=== PATIENT | female | born 1970 | race Caucasian/White ===

== ENCOUNTER → 2017-06-06 | Outpatient (CLI) | payer OTHER ==
[2017-06-06 10:17] LABS: Basophils # (A) 0.1 k/uL (0-0.2); Basophils % (A) 1 %; Eosinophils # (A) 0.3 k/uL (0-0.7); Eosinophils % (A) 3 %; HCT 39.8 % (34.0-46.0); HGB 13.9 gm/dL (11.4-16.0); Lymphocytes # (A) 2.5 k/uL (1.0-4.8); Lymphocytes % (A) 24 %; MCH 34.3 pg (25.0-35.0); MCHC 34.9 g/dL (31.0-37.0); MCV 98.3 fL (80.0-100.0); Mean Platelet Volume 7.1; Monocytes # (A) 0.5 k/uL (0-1.0); Monocytes % (A) 4 %; Neutrophils # (A) 7.1 k/uL (1.3-7.7); Neutrophils % (A) 67 %; Platelet Count 341 k/uL (150-450); RBC 4.05 m/uL (3.80-5.40); RDW 13.2 % (11.5-15.5); WBC 10.6 k/uL (3.8-10.6)
[2017-06-06 10:23] LABS: INR 1.1 (<1.2); Partial Thromboplastin Time 22.6 sec (22.0-30.0); Prothrombin Time 10.3 sec (9.0-12.0)
[2017-06-06 10:26] LABS: Appearance,Urine Cloudy (Clear); Bacteria,Urine Occasional /hpf; Bilirubin,Urine Negative (Negative); Blood,Urine Moderate (Negative); Color,Urine Yellow; Glucose,Urine (UA) Negative (Negative); Ketones,Urine Negative (Negative); Leukocyte Esterase,Urine Large (Negative); Nitrite,Urine Positive (Negative); Protein,Urine Trace (Negative); RBC,Urine 143 /hpf (0-5); Specific Gravity,Urine 1.015 (1.001-1.035); Urobilinogen,Urine <2.0 mg/dL (<2.0); WBC,Urine >182 /hpf (0-5)
[2017-06-06 10:52] LABS: Anion Gap 13 mmol/L; Blood Urea Nitrogen 16 mg/dL (7-17); Calcium 9.1 mg/dL (8.4-10.2); Carbon Dioxide 27 mmol/L (22-30); Chloride 103 mmol/L (98-107); Glucose 92 mg/dL (74-99); Sodium 143 mmol/L (137-145)
--- NOTE | 2017-06-06 12:16 | XR ---
EXAMINATION TYPE: XR chest 2V DATE OF EXAM: 06/06/2017 COMPARISON: NONE HISTORY: Preop TECHNIQUE: Frontal and lateral views of the chest are obtained. FINDINGS: There is metallic clip present at the medial aspect of the right hemidiaphragm which may be dislodged from the fallopian tube placement. There is no focal air space opacity, pleural effusion, or pneumothorax seen. The cardiac silhouette size is within normal limits. The osseous structures are intact. IMPRESSION: No acute cardiopulmonary process. Foreign body may represent fallopian tubal ligation cl ip in the upper abdomen.
== END | disposition home or self-care (01) ==
LOC: LABPAT 09:25
PROVIDERS: ATTEND Orthopaedic Surgery Orthopaedic Surgery of the Spine
DX: Z01.818 Encounter for other preprocedural examination (principal); Z01.812 Encounter for preprocedural laboratory examination; M48.02 Spinal stenosis, cervical region; Z79.01 Long term (current) use of anticoagulants
CPT/HCPCS: 36415; 71046; 80048; 81001; 85025; 85610; 85730

== ENCOUNTER → 2017-09-10 | Outpatient (CLI) | payer OTHER ==
--- NOTE | 2017-09-10 23:40 | US ---
EXAMINATION TYPE: US transvaginal DATE OF EXAM: 09/10/2017 COMPARISON: NONE CLINICAL HISTORY: 47-year-old female N92.0 Menorrhagia. Irregular painful heavy cycles x couple month s, 1, 1, history of tubal ligation TECHNIQUE: Transvaginal exam only per ordering physician Date of LMP: 08/18/2017 FINDINGS: EXAM MEASUREMENTS: Uterus: 7.7 x 3.1 x 4.1 cm Endometrial Stripe: 0.3 cm Right Ovary: 3.4 x 2.2 x 1.7 cm Left Ovary: 2.6 x 1.8 x 2.1 cm 1. Uterus: anteverted, mildly heterogeneous, multiple nabothian cysts 2. Endometrium: wnl 3. Right Ovary: small 1.4cm cyst or dominant follicle 4. Left Ovary: wnl 5. Bilateral Adnexa: wnl 6. Posterior cul-de-sac: wnl IMPRESSION: A 1.4 cm dominant follicle or functional cyst in the right ovary. Multiple cervical nabothian cysts. Otherwise, no specific abnormality seen.
== END | disposition home or self-care (01) ==
LOC: RADUSWWP 16:57
PROVIDERS: ATTEND Family Medicine
DX: N88.8 Other specified noninflammatory disorders of cervix uteri (principal)
CPT/HCPCS: 76830

== ENCOUNTER → 2017-11-29 | Outpatient (CLI) | payer OTHER | END | disposition home or self-care (01) | LOC: LABWHC1 11:19 | PROVIDERS: ATTEND Internal Medicine Cardiovascular Disease | DX: I10 Essential (primary) hypertension (principal) | CPT/HCPCS: 36415; 83704 ==

== ENCOUNTER → 2018-05-02 | Outpatient (CLI) | payer OTHER ==
--- NOTE | 2018-05-02 14:03 | MM ---
Reason for exam: follow-up at short interval from prior study. Last mammogram was performed 7 months ago. History: Patient is nulliparous. Benign excisional biopsy of the left breast. Took hormonal contraceptives for 15 years. Physical Findings: Nurse did not find any significant physical abnormalities on exam. MG Diagnostic Mammo LT w CAD CC and MLO view(s) were taken of the left breast. Prior study comparison: October 11, 2017, bilateral MG screening mammo w CAD. July 20, 2016, mammogram, performed at [facility]. The breast tissue is heterogeneously dense. This may lower the sensitivity of mammography. Stable grouped and regional calcifications laterally for 6 months and likely from 2017 as well. Additional short interval follow up recommended. These results were verbally communicated with the patient and result sheet given to the patient on 05/02/18. ASSESSMENT: Probably benign, BI-RAD 3 RECOMMENDATION: Follow-up diagnostic mammogram of both breasts in 6 months.
== END ==
LOC: RADMAMWWP 12:59
PROVIDERS: ATTEND Family Medicine
DX: R92.8 Other abnormal and inconclusive findings on diagnostic imaging of breast (principal)
CPT/HCPCS: 77065

== ENCOUNTER → 2018-06-24 | Outpatient (CLI) | payer OTHER ==
--- NOTE | 2018-06-24 18:43 | XR ---
EXAMINATION TYPE: XR chest 2V DATE OF EXAM: 06/24/2018 COMPARISON: 06/06/2017 HISTORY: Preop TECHNIQUE: Frontal and lateral views of the chest are obtained. FINDINGS: Heart and mediastinum are normal. Lungs are clear. Diaphragm is normal. Bony thorax appear s normal. There is surgical clip apparently at the inferior right cardiac border. IMPRESSION: Normal chest. No change.
== END ==
LOC: LABPAT 16:00
PROVIDERS: ATTEND Orthopaedic Surgery Orthopaedic Surgery of the Spine
DX: Z01.818 Encounter for other preprocedural examination (principal); Z01.812 Encounter for preprocedural laboratory examination; G95.89 Other specified diseases of spinal cord
CPT/HCPCS: 71046; 80053; 85025; 85610; 85730; 86850; 86900; 86901

== ENCOUNTER 2018-07-03 12:12 | Day surgery (SDC) | payer OTHER ==
[~2018-07-03 12:12] MED LIST: BACITRACIN 50,000 UNIT, POLYMYXIN B 500,000 UNIT in SODIUM CHLORIDE 0.9% IRRIGATIO 1,00... IRRIGATION ONE; DEXAMETHASONE SOD PHOSPHATE 10 MG/ML 1 ML VIAL IV ONE; LIDOCAINE 1% 20 ML VIAL (10MG/ML) FOR IV START INTRADERMA PRN; MIDAZOLAM 2 MG/2 ML VIAL IV PRN; ceFAZolin IN SWFI 2 GM/20 ML SYRINGE IVP ONE
[2018-07-03] MEDS: LACTATED RINGERS 1,000 ML IV SCH ×3 (14:24→22:47)
[2018-07-03] MEDS ORDERED: ONDANSETRON 4 MG/2 ML VIAL IVP ONE (14:25)
[2018-07-03] MEDS ORDERED: LIDOCAINE 1% INJ 10MG/ML (20 ML MDV) ONE (15:34)
[2018-07-03] MEDS ORDERED: ePHEDrine SULFATE/0.9% NACL/PF 50 MG/5 ML SYRINGE IV ONE (15:34)
[2018-07-03] MEDS ORDERED: SUCCINYLCHOLINE CHLORIDE 100 MG/5 ML SYR IV ONE (15:34)
[2018-07-03] MEDS ORDERED: ROCURONIUM BROMIDE 10 MG/ML 10 ML VIAL IV ONE (15:34)
[2018-07-03] MEDS ORDERED: GLYCOPYRROLATE 0.2 MG/ML 2 ML VIAL ONE (15:34)
[2018-07-03] MEDS ORDERED: HYDROmorphone (PF) 1 MG/ML ONE (15:34)
[2018-07-03] MEDS ORDERED: NEOSTIGMINE 1 MG/ML 10 ML VIAL ONE (15:34)
[2018-07-03] MEDS ORDERED: PHENYLEPHRINE-0.9% NACL SYG 1 MG/10 ML SYRINGE ONE (15:34)
[2018-07-03] MEDS ORDERED: fentaNYL (PF) 50 MCG/ML 2 ML AMP ONE (15:34)
[2018-07-03] MEDS ORDERED: MIDAZOLAM 2 MG/2 ML VIAL ONE (15:34)
[2018-07-03] MEDS ORDERED: PROPOFOL 10 MG/ML 20 ML VIAL IV ONE (15:34)
[2018-07-03] MEDS ORDERED: GELATIN SPONGE,ABSORB (LARGE) 1 EACH SPONGE TOPICAL ONE (16:11)
[2018-07-03] MEDS ORDERED: THROMBIN (BOVINE) 5,000 UNIT VIAL TOPICAL ONE (16:11)
[2018-07-03] MEDS ORDERED: LIDOCAINE 0.5%-EPI 1:200,000 50 ML VIAL SQ ONE (16:11)
[2018-07-03] MEDS ORDERED: LACTATED RINGERS 1,000 ML IV ONE ×4 (16:32→18:23)
--- NOTE | 2018-07-03 16:44 | XR ---
Cervical spine single view. History needle placement. Comparison none. This single lateral view was obtained. There is a needle with the tip over the disc space at C5-6. IMPRESSION: Needle tip is at the C5-6 disc.
[2018-07-03] MEDS ORDERED: HYDROmorphone 1 MG/ML 1 ML SYRINGE IVP PRN (17:43)
[2018-07-03] MEDS ORDERED: ONDANSETRON 4 MG/2 ML VIAL IVP PRN (17:43)
[2018-07-03] MEDS ORDERED: HYDROcodone/APAP 5-325MG 1 EACH TAB PO PRN (17:43)
[2018-07-03] MEDS ORDERED: MAGNESIUM HYDROXIDE 2,400 MG/10 ML CUP PO PRN (17:43)
[2018-07-03] MEDS ORDERED: ACETAMINOPHEN TAB 325 MG TAB PO PRN (17:43)
[2018-07-03] MEDS ORDERED: HYDROmorphone 0.5 MG/0.5 ML SYRINGE IVP PRN (17:43)
--- NOTE | 2018-07-03 17:56 | P.OP ---
Date of Procedure: 07/03/18 Preoperative Diagnosis: Cervical myelopathy, cervical stenosis, disc herniation C4 5 C5 6 C6 7, upper extremity weakness, upper extremity radiculopathy Postoperative Diagnosis: Same Anesthesia: GETA Pathology: none sent Condition: stable Disposition: PACU Description of Procedure: BRIEF OPERATIVE NOTE Preoperative Diagnosis:Cervical myelopathy, cervical stenosis, disc herniation C4 5 C5 6 C6 7, upper extremity weakness, upper extremity radiculopathy Postoperative Diagnosis:Cervical myelopathy, cervical stenosis, disc herniation C4 5 C5 6 C6 7, upper extremity weakness, upper extremity radiculopathy Procedure: Anterior cervical decompression discectomy and fusion C4 5 C5 6 C6 7 Placement of interbody graft C4 5 C5 6 C6 7 Application of anterior cervical plate C4 5 6 7 Surgeon: Dr. Ramos [facility] Experience Strategy: Dion THOMAS who is present throughout the entire the case persistence during positioning, dissection, exposure, visualization, and all crucial elements of the case as well as closure. Anesthesia: General anesthesia per Dr. Walker Estimated blood loss: Approximately 50 mL Complications: None apparent Components implanted: K2M Cass anterior cervical plate system with 12 mm screws and vikos interbody allograft bone graft with 1 mL of DBX bone putty to supplemental the allograft bone graft Disposition: To recovery room in good stable condition. OPERATIVE INDICATIONS The patient has had long-standing issues in their neck and upper extremities. She is having worsening of her symptoms and some evidence of weakness and decreased extremity and her upper extremities. She is found have significant disc herniations at C4 5 C5 6 C6 7 with significant stenosis and evidence of early myelopathy. Her symptoms correlated well with her MRI and imaging findings. The patient has been through conservative treatment. She is having worsening of her symptoms despite aggressive conservative care. We discussed v arious treatment options including surgery, and the patient wishes to proceed with surgery We discussed the risk, patient's alternatives and benefits of surgery including but not limited to, risk of bleeding risk of infection, risk of need for further surgery, risk of decreased, loss of motion, muscle function, malunion nonunion, hardware failure, nerve damage, paralysis, heart attack, and . OPERATIVE SUMMARY After discussing all the risks, patient alternatives and benefits at length, the patient elected to proceed with surgical intervention, signed informed consent, and presented for their procedure. The patient was seen and examined in the preoperative holding area and the surgical site was marked. The patient was given antibiotics and brought to the operating room. The patient was positioned on the operating room table in a supine position being careful to pad any bony prominences and pressure points. The patient was sedated and intubated by anesthesia in standard fashion. Once the airway and C- spine were stabilized the patient's arms were padded and tucked at her side, with her shoulders gently taped. The head was placed in a donut pad with the neck in good neutral alignment and position. We were careful to maintain the patient's cervical spine and good neutral alignment and position throughout. The patient was prepped and draped in a normal standard fashion. An appropriate timeout and keystone protocol performed. We were able to proceed with the surgery. The local wound area was infiltrated with local anesthetic. An incision was made transversely approximately 2-1/2 cm over the appropriate levels at C5 6. Dissection was taken down subcutaneously to the level of the platysma which was split in line with its fibers. Dissection was taken with a c arotid approach, with the trachea and esophagus medial and the carotid sheath laterally. We dissected down to the anterior surface of the vertebral bodies. Intraoperative x-ray was taken which showed a marker at the appropriate level at C5 6 starting at C4 5 and then moving to C5 6 and then C6 7. With the appropriate level positively confirmed, we were able to proceed with discectomy at the appropriate levels. All of the operative levels were exposed appropriately. The patient had all their twitches back, and there was no evidence of recurrent laryngeal issue. The wound was copiously irrigated and suctioned dry as had been done periodically throughout the case. At the appropriate level/levels, I established an annulotomy with an 11 blade scalpel. A discectomy was performed with a combination of pituitary rongeurs, curettes, a high-speed bur, and Kerrison rongeurs. Note was made of obvious disc herniation with stenosis centrally and at the bilateral neural foramen. This was remedied with the discectomy and decompression. The posterior longitudinal ligament was taken down as were any posterior osteophytes. This gave good central and bilateral foraminal decompression. There is no evidence of any dural tear or leak. The endplates were prepared with a high-speed bur. With the endplates in good parallel position, I was able to size for the appropriate size interbody graft. The wound was irrigated and suctioned dry the graft was prepared and malleted into position. It had good alignment and position with the anterior surface flush with the anterior surface of the vertebral bodies. This was done similarly the appropriate levels first at C4 5 than at C5 6 and then at C6 7. With the grafts intact, I was able to measure and contour and appropriate sized plate. The plate was positioned at the midline over the appropriate levels from C4 to C7. Screw holes were established with a hand drill and drill guide. Screws were placed in good alignment and position with excellent bony purchase. They were seated under the locking device. The construct was checked and found to be stable. Intraoperative x-ray was taken which showed good alignment and position of the implants at the appropriate levels at C4 5 6 7. There was no evidence of any dural tear or leak. Good hemostasis was maintained. The wound was copiously irrigated and suctioned dry as had been done periodically throughout the case. The platysma was closed with absorbable suture. The subcutaneous tissue was closed. The subcuticular tissue was closed with absorbable suture. The wound was cleaned and dried and dressed appropriately. A soft cervical collar was placed appropriately. The patient was woken up by anesthesia, extubated, transferred back gently to their hospital bed and brought to the recovery room in good stable condition. The patient will be admitted to the hospital for appropriate postoperative care, medical management and monitoring. We will continue to follow them closely about the postoperative course.
[2018-07-03] MEDS: HYDROmorphone 1 MG/ML 1 ML SYRINGE IVP ONE ×2 (18:02→18:09)
[2018-07-03] MEDS: fentaNYL (PF) 50 MCG/ML 2 ML AMP IV PRN ×2 (18:22→18:29)
--- NOTE | 2018-07-03 18:41 | XR ---
Cervical spine EXAMINATION TYPE: XR cervical spine 1V DATE OF EXAM: 07/03/2018 COMPARISON: Today HISTORY: Surgery TECHNIQUE: Single view FINDINGS: A single lateral view shows a plate and screws apparently fusing the cervical spine anterio rly from C4 to C7. Vertebra have normal alignment. IMPRESSION: No complicating process seen.
[2018-07-03] MEDS ORDERED: HYDROmorphone 1 MG/ML 1 ML SYRINGE IVP ONE ×3 (19:00→19:51)
[2018-07-03 20:59] VITALS: BMI 33.5
[2018-07-03] MEDS: FAMOTIDINE 20 MG TAB PO SCH (21:13)
[2018-07-03] MEDS: SODIUM CHLORIDE 0.9% 1,000 ML IV SCH (21:14)
[2018-07-03] MEDS: HYDROcodone/APAP 10-325MG 1 EACH TAB PO PRN (22:55)
[2018-07-03] MEDS: ceFAZolin IN SWFI 2 GM/20 ML SYRINGE IVP SCH (23:02)
[2018-07-04] MEDS: BENZOCAINE/MENTHOL LOZENG 1 EACH LOZENGE MUCOUS MEM PRN ×2 (01:24→05:32)
[2018-07-04] MEDS: HYDROcodone/APAP 10-325MG 1 EACH TAB PO PRN (05:30)
[2018-07-04] MEDS ORDERED: LEVOTHYROXINE 88 MCG TAB PO SCH (06:30)
[2018-07-04] MEDS: SODIUM CHLORIDE 0.9% 1,000 ML IV SCH (08:09)
[2018-07-04] MEDS: ceFAZolin IN SWFI 2 GM/20 ML SYRINGE IVP SCH (08:51)
[2018-07-04] MEDS: FAMOTIDINE 20 MG TAB PO SCH (08:52)
[2018-07-04] MEDS ORDERED: LORATADINE 10 MG TAB PO SCH (09:00)
[2018-07-04] MEDS ORDERED: NITROFURANTOIN MONOHYD/M-CRYST 100 MG CAP PO SCH (09:00)
[2018-07-04] MEDS ORDERED: SENNOSIDES-DOCUSATE SODIUM 1 EACH TAB PO SCH ×2 (09:00)
[2018-07-04] MEDS ORDERED: CHOLECALCIFEROL 1,000 UNIT TAB PO SCH (09:00)
[2018-07-04] MEDS ORDERED: LOSARTAN 50 MG TAB PO SCH (09:00)
[2018-07-04 09:21] VITALS: BP 112/71; PULSE 93; RESP 16; TEMP 98.1
--- NOTE | 2018-07-04 09:34 | P.DS ---
Providers Date of admission: 07/03/18 Attending physician: Matty Ramos Primary care physician: Umesh Goldstein [place] [facility] Course: The patient presented on the day of admission as per their operative note. She had cervical stenosis with evidence of early myelopathy due to her stenosis at C4 5 C5 6 and C6 7 with disc herniations. She is having upper extremity radiculopathy as well. She feels that her symptoms at her upper extremities are somewhat improved with her surgery. She still having some numbness tingling she has been able to mobilize. Physical Exam The incision site is clean dry and intact. There is no erythema no drainage. There is no purulence no evidence of infection. Her neck is soft and supple. There is very small dry drainage on her dressing which we will leave intact. Abdomen soft and nontender. Chest has good excursion with deep inspiration and expiration. The patient has active and passive range of motion intact at the upper and lower extremities. There is no acute change in neurologic status. Hospital Course Postoperative day #1 status post anterior cervical decompression with discectomy and fusion C4 5 C5 6 C6 7 for her disc herniations with significant cervical stenosis and cervical myelopathy with radiculopathy. The patient has been making good progress postoperatively. They have completed the prophylactic antibiotics without any signs or symptoms of infection. The patient has been able to advance their diet, and is tolerating a soft diet adequately. The pain was initially controlled with IV medications and is now controlled appropriately with oral medications. The patient has been able to increase their mobilization. The dressing is clear and her neck is soft and supple. The patient has progressed appropriately. I think they are in good stable condition for discharge today. They will be sent home with appropriate prescriptions. I answered their questions to the best of my ability in a language that they can understand and they are agreeable with the plan. They will follow up as directed in approximately 2 weeks or sooner she is having problems. Patient Condition at Discharge: Good Plan - Discharge Summary Discharge Rx Participant: Yes New Discharge Prescriptions: No Action HYDROcodone/APAP 10-325MG [[place] 10-325] 1 tab PO TID PRN PRN Reason: Pain Multivitamin [Multivitamins Adult Gummies] 1 each PO DAILY Cetirizine HCl 10 mg PO DAILY Ranitidine HCl [Zantac] 150 mg PO BID Levothyroxine Sodium [Synthroid] 175 mcg PO QAM Cholecalciferol [Vitamin D3] 2,000 unit PO DAILY Losartan [Cozaar] 50 mg PO QAM Nitrofurantoin Macrocrystal [Macrodantin] 100 mg PO DAILY Discharge Medication List Cetirizine HCl 10 mg PO DAILY 06/01/17 [History] Cholecalciferol [Vitamin D3] 2,000 unit PO DAILY 06/01/17 [History] HYDROcodone/APAP 10-325MG [[place] 10-325] 1 tab PO TID PRN 06/01/17 [History] Levothyroxine Sodium [Synthroid] 175 mcg PO QAM 06/01/17 [History] Losartan [Cozaar] 50 mg PO QAM 06/01/17 [History] Multivitamin [Multivitamins Adult Gummies] 1 each PO DAILY 06/01/17 [History] Ranitidine HCl [Zantac] 150 mg PO BID 06/01/17 [History] Nitrofurantoin Macrocrystal [Macrodantin] 100 mg PO DAILY 06/26/18 [History] Follow up Appointment(s)/Referral(s): Matty Ramos DO [Doctor of Osteopathic Medicine] - 2 Weeks Activity/Diet/Wound Care/Special Instructions: Keep site clean. May shower with waterproof Tegaderm intact. Do not soak in a tub. After 72 hours postoperatively, patient May remove dressing and then may shower with area uncovered. Leave Steri-Strips intact and allow them to fray off on their own. May ambulate as tolerated. Avoid heavy or rigorous activity. No repetitive bending twisting or lifting. No overhead work. Discharge Disposition: HOME SELF-CARE
== END 2018-07-04 11:03 | disposition home or self-care (01) ==
LOC: OR 12:12 → 4SSUR 17:44 → OR 07-04 11:03
PROVIDERS: ATTEND Orthopaedic Surgery Orthopaedic Surgery of the Spine
DX: M50.021 Cervical disc disorder at C4-C5 level with myelopathy (principal); M48.02 Spinal stenosis, cervical region; M50.121 Cervical disc disorder at C4-C5 level with radiculopathy; M25.78 Osteophyte, vertebrae; M43.12 Spondylolisthesis, cervical region; R26.9 Unspecified abnormalities of gait and mobility; E78.5 Hyperlipidemia, unspecified; I10 Essential (primary) hypertension; E78.00 Pure hypercholesterolemia, unspecified; E89.0 Postprocedural hypothyroidism; F17.210 Nicotine dependence, cigarettes, uncomplicated; K21.9 Gastro-esophageal reflux disease without esophagitis; E66.9 Obesity, unspecified; Z68.32 Body mass index [BMI] 32.0-32.9, adult; R06.02 Shortness of breath; K30 Functional dyspepsia; Z79.890 Hormone replacement therapy; Z79.891 Long term (current) use of opiate analgesic; Z79.52 Long term (current) use of systemic steroids; Z79.899 Other long term (current) drug therapy; Z88.8 Allergy status to other drugs, medicaments and biological substances
CPT/HCPCS: 81025; 86900; 86901; 80053; 85025; 85610; 85730; 86850; 72020; 22551; 22552 ×2; 20931; C1713; C1762; J2250; J2710; J2405; J2001; J3010; J1170 ×2; J2370; J0330; J2704; J0690 ×2

== ENCOUNTER → 2019-10-06 | Outpatient (CLI) | payer OTHER ==
--- NOTE | 2019-10-07 11:27 | MM ---
Reason for exam: screening (asymptomatic). Last mammogram was performed 1 year and 5 months ago. History: Patient is nulliparous. Benign excisional biopsy of the left breast. Took hormonal contraceptives for 15 years. Physical Findings: A clinical breast exam by your physician is recommended on an annual basis and results should be correlated with mammographic findings. MG Screening Mammo w CAD Bilateral CC and MLO view(s) were taken. Prior study comparison: May 02, 2018, left breast MG diagnostic mammo LT w CAD. October 11, 2017, bilateral MG screening mammo w CAD. The breast tissue is heterogeneously dense. This may lower the sensitivity of mammography. There are benign appearing round, diffuse and grouped calcifications bilaterally. There is no discrete abnormality. ASSESSMENT: Benign, BI-RAD 2 RECOMMENDATION: Routine screening mammogram of both breasts in 1 year.
== END | disposition home or self-care (01) ==
LOC: RADMAMWWP 14:50
PROVIDERS: ATTEND Obstetrics & Gynecology
DX: Z12.39 Encounter for other screening for malignant neoplasm of breast (principal)
CPT/HCPCS: 77067

== ENCOUNTER 2021-08-29 10:46 | Day surgery (SDC) | payer OTHER ==
[2021-08-25 15:47] VITALS: BMI 31.6
[~2021-08-29 10:46] MED LIST changes: -BACITRACIN 50,000 UNIT, POLYMYXIN B 500,000 UNIT in SODIUM CHLORIDE 0.9% IRRIGATIO 1,00... IRRIGATION ONE; -DEXAMETHASONE SOD PHOSPHATE 10 MG/ML 1 ML VIAL IV ONE; +LACTATED RINGERS 1,000 ML IV SCH; +LIDOCAINE 1% (10MG/ML) FOR IV START INTRADERMA PRN; -LIDOCAINE 1% 20 ML VIAL (10MG/ML) FOR IV START INTRADERMA PRN; -MIDAZOLAM 2 MG/2 ML VIAL IV PRN; -ceFAZolin IN SWFI 2 GM/20 ML SYRINGE IVP ONE
[2021-08-29 11:07] VITALS: TEMP 98.2
[2021-08-29] MEDS ORDERED: LIDOCAINE 2% INJ 20 MG/ML (2 ML VIAL) ONE (11:39)
[2021-08-29] MEDS ORDERED: PROPOFOL 10 MG/ML 20 ML VIAL IV ONE (11:39)
--- NOTE | 2021-08-29 12:08 | P.PCN ---
Date of Procedure: 08/29/21 Preoperative Diagnosis: Colon cancer screening, GERD Postoperative Diagnosis: Colon cancer screening, GERD, sliding hiatal hernia, diverticulosis Procedure(s) Performed: EGD, colonoscopy Anesthesia: MAC Surgeon: Yasemin Beltran Pathology: none sent Condition: stable Disposition: PACU Description of Procedure: Patient's taken to the endoscopy suite were gastroscope is passed per mouth to the third and fourth portions of the duodenum. Pharynx is unremarkable. The esophagus is without evidence of esophagitis or mass lesion. GE junction is without inflammatory change. There is a small sliding hiatal hernia. Otherwise the stomach pylorus and family mass lesion ulcer or mucosal abnormality. She is then repositioned in a colonoscope is passed per rectum to the cecum. She has a fairly good prep. There is some liquid material was irrigated and aspirated. She has diverticulosis primarily in the sigmoid colon but there is some diverticulosis in the right colon. There are hypertrophied anal papillae on retroflexion of the scope. Otherwise there is no evidence of polyp, mass lesion, ulcer, stricture or other mucosal abnormality. She tolerated the procedure without difficulty and is taken to recovery room in satisfactory condition. Repeat colonoscopy in 10 years as long as nothing changes with the bowel habits. Plan - Discharge Summary Discharge Rx Participant: No New Discharge Prescriptions: No Action Multivitamin [Multivitamins Adult Gummies] 1 each PO DAILY Levothyroxine Sodium [Synthroid] 125 mcg PO QAM Cholecalciferol [Vitamin D3] 2,000 unit PO DAILY Losartan [Cozaar] 50 mg PO QAM Metoprolol Succinate [Toprol XL] 50 mg PO DAILY Aspirin 81 mg PO DAILY Cetirizine HCl [Zyrtec] 10 mg PO HS traZODone HCL 50 mg PO HS Vitamin E 200 unit PO DAILY Triamterene/Hydrochlorothiazid [Triamterene-Hctz 37.5-25 mg Tb] 0.5 tab PO DAILY HYDROcodone/APAP 7.5-325MG [[place] 7.5-325] 1 tab PO Q4-6H PRN PRN Reason: Pain Albuterol Sulfate [Proair Hfa] 1 - 2 puff INHALATION Q6HR PRN PRN Reason: Shortness Of Breath Or Wheezing Albuterol Sulfate [Albuterol Sulfate Oral Syrup] 2 mg PO Q6H PRN PRN Reason: Shortness Of Breath Discharge Medication List Cholecalciferol [Vitamin D3] 2,000 unit PO DAILY 06/01/17 [History] Levothyroxine Sodium [Synthroid] 125 mcg PO QAM 06/01/17 [History] Losartan [Cozaar] 50 mg PO QAM 06/01/17 [History] Multivitamin [Multivitamins Adult Gummies] 1 each PO DAILY 06/01/17 [History] Aspirin 81 mg PO DAILY 04/21/21 [History] Cetirizine HCl [Zyrtec] 10 mg PO HS 04/21/21 [History] HYDROcodone/APAP 7.5-325MG [[place] 7.5-325] 1 tab PO Q4-6H PRN 04/21/21 [History] Metoprolol Succinate [Toprol XL] 50 mg PO DAILY 04/21/21 [History] Triamterene/Hydrochlorothiazid [Triamterene-Hctz 37.5-25 mg Tb] 0.5 tab PO DAILY 04/21/21 [History] Vitamin E 200 unit PO DAILY 04/21/21 [History] traZODone HCL 50 mg PO HS 04/21/21 [History] Albuterol Sulfate [Albuterol Sulfate Oral Syrup] 2 mg PO Q6H PRN 08/25/21 [History] Albuterol Sulfate [Proair Hfa] 1 - 2 puff INHALATION Q6HR PRN 08/25/21 [History] Discharge Disposition: HOME SELF-CARE
[2021-08-29 12:10] VITALS: BP 97/66
[2021-08-29 12:23] VITALS: PULSE 68; RESP 20
== END 2021-08-29 12:43 | disposition home or self-care (01) ==
LOC: ORWHC2ENDO 10:46
PROVIDERS: ATTEND Surgery
DX: K21.9 Gastro-esophageal reflux disease without esophagitis (principal); K44.9 Diaphragmatic hernia without obstruction or gangrene; Z12.11 Encounter for screening for malignant neoplasm of colon; K57.30 Diverticulosis of large intestine without perforation or abscess without bleeding; Z86.010 Personal history of colon polyps; E03.9 Hypothyroidism, unspecified; J42 Unspecified chronic bronchitis; I10 Essential (primary) hypertension; G89.29 Other chronic pain; E55.9 Vitamin D deficiency, unspecified; Z79.890 Hormone replacement therapy; Z79.82 Long term (current) use of aspirin; Z79.899 Other long term (current) drug therapy; Z88.8 Allergy status to other drugs, medicaments and biological substances; Z98.51 Tubal ligation status; Z98.1 Arthrodesis status; Z98.890 Other specified postprocedural states; Z83.3 Family history of diabetes mellitus; Z82.49 Family history of ischemic heart disease and other diseases of the circulatory system
CPT/HCPCS: 43235; J2704; J2001; G0105; 45378